=== PATIENT | female | born 1975 | race Caucasian/White ===

== ENCOUNTER → 2025-02-17 09:43 | Outpatient (BNVA) | payer OTHER, SELFPAY | PROVIDERS: PCP Family Medicine; Visit Provider Surgery ==

== ENCOUNTER 2025-02-27 08:06 | Outpatient (AMB) | payer OTHER, SELFPAY ==
--- NOTE | 2025-02-27 08:16 | MHC.OFFVISWM ---
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 fruits) Dinner: 5am (salad with meat) Snacks: 9.30am (another breakfast), 7pm (more dinner food, or chips) Exercise: Has home treadmill and elliptical Beverages: Coffee: (1 cup/d with milk), tea: (4 cups/d with 2% milk), soda: none, juice: none, ETOH: none PFSH Medical History (Updated 02/27/25 @ 08:53 by Brandyn Rodriguez MD) Obesity Surgical History (Updated 02/17/25 @ 10:08 by Liliana Paul CMA) No history of previous surgery Family History (Updated 02/17/25 @ 10:09 by Liliana Paul CMA) Mother No problems noted. Father No problems noted. Social History (Updated 02/17/25 @ 10:09 by Liliana Paul CMA) Alcohol intake: never Patient Tobacco Use Status: Never used Tobacco Telehealth Telehealth Telehealth Platform: Telephone Location of provider rendering services: practice address Location of patient: address on file Patient Identification confirmed using: Name, : Yes Telehealth method: voice only Patient verbally consented to treatment: Yes Patient verbally consented to billing insurance company: Yes Patient informed of any privacy concerns related to visit: Yes Minutes spent on Phone/Video with Pt.: 45 Assessment & Plan Assessment & Plan (1) Obesity: Code(s): E66.9 - Obesity, unspecified Category: Medical Qualifiers: Obesity type: due to excess calories Obesity classification: adult class 1 (BMI 30 - 34.9) Serious obesity comorbidity presence: without serious comorbidity Body mass index: BMI 30.0-30.9 Qualified Code(s): E66.811 - Obesity, class 1; E66.09 - Other obesity due to excess calories; Z68.30 - Body mass index [BMI] 30.0-30.9, adult Plan: 1. Start Phentermine daily at 9am. We discussed the potential side-effects of the Phentermine such as irritability, dry mouth, difficulty sleeping, dizziness, numbness in feet and high blood pressure. I asked her to get a blood pressure monitor and measure the blood pressure daily in the morning and evening. She needs to send the blood pressure readings daily and to call the office for blood pressure over 140/80 and she understands that. 2. Please buy the body composition scale we discussed and send me weight measurements as soon as possible and then once a week. 3. Start treadmill with an incline of 2.0 and speed of 3.5mph. Increase incline by 1 every 3 min to a max incline of 8.0, stay 3min at 8.0 and then return to 2.0 and repeat same steps until calorie goal is met. Goal is to burn 2000 calories per week on exercise, which means either 300 calories daily, or 400 calories 5 days per week, or 500 calories 4 days per week, or 650 calories 3 days per week. 4. Alternatively start Elliptical with an incline of 2.0 and resistance of 4.0. Increase resistance by 1 every 3 min to a max resistance of 10.0, and repeat cycles for 300 calories. 5. Goal is to lose at least 1.5-2lbs per week 6. Goal to lose at least 10% of your weight, which is about 18lbs. Minimum weight goal: 157lbs before surgery Medications: New phentermine must administer 30 minutes before or 1-2 hours after breakfast 37.5 mg PO DAILY 30 caps 0RF E66.9 - Obesity, unspecified, Z68.30 - Body mass index [BMI] 30.0-30.9, adult
== END 2025-02-27 09:00 | disposition home or self-care (01) ==
LOC: HO.HBS 08:06
PROVIDERS: PCP Family Medicine; Visit Provider Surgery
DX: E66.811 Obesity, class 1 (principal); E66.09 Other obesity due to excess calories; Z68.30 Body mass index [BMI] 30.0-30.9, adult
CPT/HCPCS: 99204

== ENCOUNTER → 2025-02-27 08:06 | Outpatient (BNVA) | payer OTHER, SELFPAY | PROVIDERS: PCP Family Medicine; Visit Provider Surgery ==

== ENCOUNTER 2025-04-16 15:40 | Outpatient (REF) | payer OTHER, SELFPAY ==
--- OUTSIDE RECORDS SUMMARY | 2021-03-01 13:14 | XMS_ITS | Continuity of Care Document ---
Author Organization [facility] Auth Address [address] [place] [id number] Phone Care Team Providers Care Community Relations Officer Name Role Phone Natali Rodrigues Unavailable Unavailable Allergies, Adverse Reactions, Alerts Substance Reaction Status Criticality No Known Allergies Active No Inform ation Medications Medication Instructions Dosage Effective Dates (start - stop) Status Comments Tri-Sprintec 0.18/0.215/0.25 MG-35 MCG Oral Tablet Take 1 tablet by mouth once daily - Active chlorthalidone 25 mg tablet take 1 tablet by oral route every day for edema 25 MG - Active Vitamin D3 125 mcg (5,000 unit) tablet take 1 TABLET by ORAL route every day 1 TABLET - Active atenolol 25 mg tablet take 1 tablet by oral route every bedtime for Hypertension 25 MG - Active Synthroid 25 mcg tablet take 1 tablet by oral route every day on an empty stomach 60 minutes before breakfast 1 tablet - Active Multi Complete with Iron 18 mg-400 mcg tablet take 1 tablet by oral route every day with food 1.00 tablet - Active Tri-Sprintec 0.18/0.215/0.25 MG-35 MCG Oral Tablet Take 1 tablet by mouth once daily - No Longer Active Ortho Tri-Cyclen (28) 0.18 mg(7)/0.215 mg(7)/0.25 mg(7)-35 mcg tablet take 1 tablet by oral route every day for oral contraceptive 1.00 tablet - No Longer Active Ortho Tri-Cyclen (28) 0.18 mg(7)/0.215 mg(7)/0.25 mg(7)-35 mcg tablet take 1 tablet by oral route every day for oral contraceptive 1.00 tablet - No Longer Active Procedures Procedure Date OFFICE OUTPATIENT VISIT Est HEMOGLOBIN A1C URINE AUTO W/O MICROSCOP COMPREHENSIVE METABOLIC PANEL 1 B-TYPE NATRIURETIC PEPTIDE ASSAY OF VITAMIN D TSH OFFICE OUTPATIENT VISIT Est PREV VISIT, EST, AGE 40-64 HPV HIGH-RISK TYPES CHYLMD TRACH, DNA, AMP PROBE OFFICE OUTPATIENT VISIT Est OFFICE OUTPATIENT VISIT New CBC W/DIFF HEMOGLOBIN A1C MICROALBUMIN QUANT ASSAY OF URINE CREATININE ASSAY OF VITAMIN D TSH COMPREHENSIVE METABOLIC PANEL 0 LIPID PROFILE URINE AUTO W/O MICROSCOP Advance Directives Directive Yes / No Effective Date File Name No Information Encounters Encounter Description Practice Location Reason(s) For Visit Diagnoses Date Provider Providers Copied on Encounter [facility], [address] [place] [address], [place], [id number] , [place] tel: [phone] [facility] No Information 1 [facility] [address] [facility] [place] [id number] , [place]. tel: [phone] [facility], [address] [place] [address], [place], [id number] , [place] tel: [phone] Scheduling No Information 1 Komal Lcuas. [address] [place], [id number] , [place]. tel: [phone] [facility], [facility] [place] [address], [place], [id number] , [place] tel: [phone] [facility] No Information 1 Komal Lucas. [address], [place], [id number] , [place]. tel: [phone] OFFICE OUTPATIENT VISIT Est [facility], [address] [place] [address], [place], [id number] , [place] tel: [phone] [facility] Follow Up of hypertension (chief complaint)Fol low Up of Thyroid problems (chief complaint)Mus culoskeletal pain (chief complaint) Hypothyroidism, unspecifiedVitam in D deficiency, unspecifiedEssen tial (primary) hypertensionEdem a Dec- 1 Komal Lucas. [address], [place], [place], [id number] , [place]. tel: [phone] OFFICE OUTPATIENT VISIT Est [facility], [address] [place] [address], [place], [id number] , [place] tel: [phone] [facility] hypertension (chief complaint)Thy roid problems (chief complaint)Chr onic Conditions (chief complaint) Hypothyroidism, unspecifiedEssen tial (primary) hypertensionVita min D deficiency, unspecifiedEncou nter for other screening for Ca of breast 0 Komal Lucas. [address], [place], [id number] , [place]. tel: [phone] PREV VISIT, EST, AGE 40-64 [facility] Auth, [address] [place] [address], [place], [id number] , [place] tel: [phone] [facility] (chief complaint) Screening for cervical cancer 0 Ruben Hurst. [address], [place], [id number] , [place]. tel: [phone] Referring Provider: Shayy Sauceda, [address], [place], [id number] . tel:[phone] OFFICE OUTPATIENT VISIT Est [facility], [address] [place] [address], [place], [id number] , [place] tel: [phone] [facility] hypertension (chief complaint)Thy roid problems (chief complaint)Chr onic Conditions (chief complaint)Tel ehealth (chief complaint) Hypothyroidism, unspecifiedEssen tial (primary) hypertensionScre ening for cervical caEncounter for screening mammogram for cancer of breast Jun- 0 Komal Hernandese. [address], [place], [place], [id number] , [place]. tel: [phone] [facility], [address] [place] [address], [place], [id number] , [place] tel: [phone] [facility] Vitamin D deficiencyHypoth yroidism 0 Komal Hernandese. [address], [place], [place], [id number] , [place]. tel: [phone] OFFICE OUTPATIENT VISIT [facility], [facility] [address] [place] [address], [place], [id number] , [place] tel: [phone] [facility] hypertension (chief complaint)Tel ehealth (chief complaint) Essential hypertensionDizz iness 0 Komalvin Hernandese. [address], [place], [id number] , [place]. tel: [phone] Family History Family Member Type Diagnosis Age At Onset Mother Problem (finding) HTN; CHF Father Problem (finding) CANCER Payers Payer name Insurance type Covered libertarian ID Authoriza tion(s) [facility] [id number] Social History Type Description Quantity Date Captured Comments Sex Female Smoking Status No Information Gender Identity Female Chief Complaint And Reason For Visit No Information Reason For Referral Reason For Referral No Information Plan Of Treatment Date Type Action Status Goal Lipid Panel. Due on 021 due Goal Pap/HPV testing. Due on due Goal Influenza vaccin e. Due on due Goal Depression scree bryan. Due on due Goal Tdap. Due on due Goal A1C. Due on due Goal ECG. Due on due Goal Tdap. Due on due Goal Influenza vaccin e. Due on due Goal Lipid panel. Due on due Goal Depression scree bryan. Due on due Goal Pap/HPV testing. Due on due Goal Urinalysis due Goal Tdap. Due on due Goal Influenza vaccin e. Due on due Goal Lipid panel. Due on due Goal Pap/HPV testing. Due on due Goal Depression scree bryan. Due on due Goal ECG. Due on due Goal Urinalysis due Goal Urinalysis due Goal ECG. Due on due Goal Depression scree bryan. Due on due Goal Tdap. Due on due Goal Influenza vaccin e. Due on due Goal Lipid panel. Due on due Goal ECG. Due on due Goal Urinalysis due Goal Tdap. Due on due Goal Depression scree bryan. Due on due Goal Pap/HPV testing. Due on due Goal Influenza vaccin e. Due on due Goal Lipid panel. Due on due Goal Urinalysis due Goal ECG. Due on due Goal Tdap. Due on due Goal Influenza vaccin e. Due on due Goal Lipid panel. Due on 025 due Goal Depression scree bryan. Due on due Goal Pap/HPV testing. Due on due Goal ECG. Due on due Goal Tdap. Due on due Goal Influenza vaccin e. Due on due Goal Depression scree bryan. Due on due Goal Pap/HPV testing. Due on due Referral Ordered: Referrals: Gynecology. Location: [facility]. Evaluate and treat Appointment date/timeframe: 08/20/2020 ordered Referral Ordered: Referrals: Ophthalmology. Evaluate and treat Appointment date/timeframe: 08/27/2020 ordered Future Order: Lab Order Vitamin D, 25-Hydroxy ([id number]), Scheduled for: Ordered Future Order: Lab Order TSH ([id number]), Scheduled for: Ordered Future Order: Radiology Order Ma mmogram (Screen); Bilat, 2-view study of each breast, incl computer-aided detection when performed ([id number]), Sent on: Sent Future Order: Lab Order Vitamin D, 25-Hydroxy ([id number]), Scheduled for: Ordered Future Order: Lab Order TSH ([id number]), Scheduled for: Ordered History Of Present Illness Encounter Date Complaint History Of Prese nt Illness Follow Up of hypertension The HT N started in 2019. The severity has been described as being moderate. It is currently stable. Risk factors include race, family history HTN, gout or CAD and oral contraceptives. Pertinent negatives include chest pain, claudication, confusion, diaphoresis, dyspnea, epistaxis, fatigue, headache, hematuria, irregular heartbeat/palpitations, nausea, tinnitus, transient weakness, tremor, visual disturbances and vomiting. Additional information: She reports feeling sleepy for the past 1 month or longer, which is contributed to atenolol. Musculoskeletal pain Severity le samra is moderate. The problem is stable. Location: knee (lateral). The pain is aggravated by bending, climbing (and descending) stairs and lifting. The pain is relieved by heat. Associated symptoms include joint tenderness and swelling. Additional information: pt c/o hand pain bilaterally near thumb joints and also left knee pain. Follow Up of Thyroid problems Th e severity of the problem is moderate. The problem has not changed. Presenting symptoms include weight gain. Presenting symptoms do not include atrial fibrillation, dysphagia, enlarged thyroid, exophthalmus, fatigue, hoarseness, increased perspiration, insomnia, intolerance to cold, intolerance to heat, irregular menses, muscle weakness, nervousness, rapid heart beat, skin and nail changes, tremor, weight loss, hard mass and rapid growth of nodule. Risk factors include age, female, history of hyperthyroidism and history of neck irradiation. Thyroid problems Presenting symp toms include weight gain. Presenting symptoms do not include atrial fibrillation, dysphagia, enlarged thyroid, exophthalmus, fatigue, hoarseness, increased perspiration, insomnia, intolerance to cold, intolerance to heat, irregular menses, muscle weakness, nervousness, rapid heart beat, skin and nail changes, tremor, weight loss, hard mass and rapid growth of nodule. Risk factors include age, female, history of hyperthyroidism and history of neck irradiation. hypertension The HTN started in 2019. The severity has been described as being moderate. It is currently stable. Risk factors include race, family history HTN and gout or CAD. Pertinent negatives include chest pain, claudication, confusion, diaphoresis, dyspnea, epistaxis, fatigue, headache, hematuria, irregular heartbeat/palpitations, nausea, tinnitus, transient weakness, tremor, visual disturbances and vomiting. Chronic Conditions *See Chronic Conditions HPI PAP SMEAR DENIES ABDOMINAL DISCOMFORT, URINARY OR DISCHARGE.Sexually active Telehealth This is a teleme dicine visit with the patient, which is taking place via telephone. During this visit, the provider is located at [facility] and the patient is located in [place], [place].Discussed with patient: You are engaging care through the use of telemedicine, a phone visit. This allows us to comply with the social distancing recommendations while still providing safe, effective, and convenient care through the use of technology. There are some risks associated with the use of telemedicine, including equipment failure. Also, you also understand that the provider cannot physically examine you.Patient consents to the use of telemedicine today.Patient verbally understands the risks and benefits of telemedicine as explained. The patient was informed that the visit may not be secure and acknowledge the information. Chronic Conditions *See Chronic Conditions HPI Thyroid problems The severity of the problem is mild. The problem has not changed. Presenting symptoms include weight gain. Presenting symptoms do not include atrial fibrillation, dysphagia, fatigue and insomnia. Risk factors include age, female, history of hyperthyroidism and history of neck irradiation. hypertension The HTN started in 2019. The severity has been described as being mild-moderate. It is currently stable. Risk factors include race, family history HTN, gout or CAD and quit smoking 30 days.. Pertinent negatives include chest pain, dyspnea, fatigue, headache and hematuria. Additional information: Home BP daily: highest 178/101, lowest 136/72; no edema, denies high salt intake. bakes foods Telehealth This was a telem edicine visit with the patient which took place via telephone. During the visit I was at [facility] and the patient was at work. Discussed with patient: You are engaging care through the use of telemedicine, a phone visit. This allows us to comply with the social distancing recommendations while still providing safe, effective, and convenient care through the use of technology. There are some risks associated with the use of telemedicine, including equipment failure. Also, you also understand that I cannot physically examine you.Do you consent to the use of telemedicine today? yesPatient verbally understands the risks and benefits of telemedicine as explained. The patient was informed that the visit may not be secure and acknowledged the information. hypertension The HTN started in 2019. The severity has been described as being moderate. Risk factors include race, family history HTN and gout or CAD. Associated symptoms include transient weakness, dizziness and left arm tingling. Pertinent negatives include chest pain, claudication, dyspnea, headache, nausea, visual disturbances and vomiting. Additional information: home BP 168/115, 158/107 MORNING before med; 136/60 - 178/115 when she arrives to work; 136/78 - 160/78 1 hour after walking; 168/72 -178/105 with dizziness spell. Functional Status Date Functional Assessmen t No Information Medications Administered Medication Instructions Dosage Effective Dates (start - stop) Status Comments Tri-Sprintec 0.18/0.215/0.25 MG-35 MCG Oral Tablet Take 1 tablet by mouth once daily - No Longer Active Instructions Date Instruction Additional Infor mation daily weights for we ight gain,monitor sodium intake, goal < 1500 mg daily Related to Edema continue vitamin D, Related to V itamin D deficiency, unspecified discussed hypothyroi dism and symptoms, TSH TODAY Related to Hypothyroidism, unspecified Repeat Vitamin D in September 0. Related to Vitamin D deficiency, unspecified Continue home BP wee kly and bring log to clinic.Sodium max 1500 mg po QD Related to Essential (primary) hypertension Advised to have labs drawn 09/27 Related to Hypothyroidism, unspecified screening for 45 y/o former smoker of 1 month on OCP screening for breast cancer. Related to Encounter for screening mammogram for cancer of breast Pt advised that [facility] clinic will only do PAP smear.She is advised to call with control pill name. Related to Screening for cervical ca Continue home BP wee kly and bring log to clinic.Sodium max 1500 mg po qd. Related to Essential (primary) hypertension Discussed side effec ts of hypothyroidism and hypothyroidism is a complication of radiation therapy to neck. Related to Hypothyroidism, unspecified Will re-evaluate noel jimenezness with change in medication regime. Related to Dizziness Home BP WEEKLY, BRIN G LOG TO CLINIC;SODIUM MAX 1500 MG PO QD Related to Essential hypertension Assessments Type Assessment Date No Information Patient Care Teams Name Effective Dates (start - stop) Status Members No Information
== END 2025-04-16 15:41 | disposition home or self-care (01) ==
LOC: HO.MAMMO 15:40
PROVIDERS: PCP Family Medicine; Visit Provider Family Medicine
DX: Z12.31 Encounter for screening mammogram for malignant neoplasm of breast (principal)
CPT/HCPCS: 77063; 77067

== ENCOUNTER → 2025-04-16 15:45 | Outpatient (BNV) | payer OTHER, SELFPAY | PROVIDERS: PCP Family Medicine; Visit Provider Internal Medicine | DX: Z12.31 Encounter for screening mammogram for malignant neoplasm of breast (principal) | CPT/HCPCS: 77063; 77067 ==